=== PATIENT | female | born 1965 | race American Indian/Alaskan Native ===

== ENCOUNTER 2018-04-25 11:18 | Emergency (ER) | payer MEDICAID ==
[2018-04-25 11:28] VITALS: PULSE 88; RESP 18
[2018-04-25] MEDS ORDERED: Sodium Chloride 0.9% 500 ML IV ONE (12:16)
[2018-04-25] MEDS ORDERED: Sodium Chloride 0.9% 0 ML IV ONE (12:28)
[2018-04-25] MEDS ORDERED: Sodium Chloride 0.9% 1,000 ML ONE (12:28)
[2018-04-25 12:44] LABS: BASO # 0.1 K/uL (0.0-0.2); BASO % 1.4 % (0.0-2.0); EOS % 0.7 % (0.0-4.0); HEMOGLOBIN 13.3 g/dL (11.0-16.0); LYMPH # 3.1 K/uL (1.0-4.3); LYMPH % 46.2 % (20.0-40.0); MEAN CORPUSCULAR HEMOGLOBIN 27.7 pg (27.0-31.0); MEAN CORPUSCULAR HGB CONC 34.3 g/dL (33.0-37.0); MEAN PLATELET VOLUME 7.5 fL (7.2-11.7); MONO # 0.6 K/uL (0.0-0.8); MONO % 8.7 % (0.0-10.0); NEUT # 2.9 K/uL (1.8-7.0); NRBC % 0.1 % (0.0-2.0); RBC 4.79 Mil/uL (3.80-5.20); RED CELL DISTRIBUTION WIDTH 13.6 % (11.5-14.5); WHITE BLOOD COUNT 6.7 K/uL (4.8-10.8)
[2018-04-25 12:56] LABS: BLOOD UREA NITROGEN 12 mg/dL (7-17); CALCIUM 9.2 mg/dl (8.6-10.4); GFR NON-AFRICAN AMERICAN > 60; LIPASE 57 U/L (23-300)
[2018-04-25 12:57] LABS: ALB/GLOB RATIO 1.5 (1.0-2.1); ALBUMIN 4.8 g/dL (3.5-5.0); ALT/SGPT 11 U/L (9-52); AST/SGOT 41 U/L (14-36)
--- NOTE | 2018-04-25 13:00 | C.PDOC ---
History Of Present Illness 53 years old female presents to ED for complaint of epigastric abdominal pain associated with nausea and dizziness that began 1 month ago. Patient reports pain has worsened. Denies diarrhea or any other complaints. Time Seen by Provider: 04/25/18 11:46 Chief Complaint (Nursing): Abdominal Pain History Per: Patient History/Exam Limitations: no limitations Onset/Duration Of Symptoms: Hrs Current Symptoms Are (Timing): Still Present Location Of Pain/Discomfort: Epigastric Radiation Of Pain To:: None Associated Symptoms: Nausea. denies: Fever, Chills, Vomiting, Diarrhea, Urinary Symptoms Exacerbating Factors: None Alleviating Factors: None Last Bowel Movement: Today Recent travel outside of the [place]: No Abnormal Vaginal Bleeding: No Past Medical History Reviewed: Historical Data, Nursing Documentation, Vital Signs Vital Signs: Last Vital Signs Temp 98.3 F 04/25/18 11:27 Pulse 88 04/25/18 11:27 Resp 18 04/25/18 11:27 BP 147/90 04/25/18 11:27 Pulse Ox 98 04/25/18 11:27 - Medical History PMH: HTN Family History: States: No Known Family Hx - Social History Hx Alcohol Use: No Hx Substance Use: No - Immunization History Hx Tetanus Toxoid Vaccination: No Hx Influenza Vaccination: No Hx Pneumococcal Vaccination: No Review Of Systems Except As Marked, All Systems Reviewed And Found Negative. Constitutional: Negative for: Fever, Chills Gastrointestinal: Positive for: Nausea, Abdominal Pain (Epigastric ). Negative for: Vomiting, Diarrhea Skin: Negative for: Rash Neurological: Positive for: Dizziness. Negative for: Weakness, Numbness Physical Exam - Physical Exam Appears: Non-toxic, No Acute Distress Skin: Normal Color, Warm, Dry, No Rash Head: Atraumatic, Normacephalic Eye(s): bilateral: Normal Inspection, PERRL, EOMI Oral Mucosa: Moist Neck: Normal ROM, Supple Chest: Symmetrical, No Tenderness Cardiovascular: Rhythm Regular, No Murmur Respiratory: Normal Breath Sounds, No Rales, No Rhonchi, No Wheezing Gastrointestinal/Abdominal: Bowel Sounds (Active ), Soft, Tenderness (Diffuse epigastric ), No Distention, No Guarding, No Rebound Extremity: Normal ROM Extremity: Bilateral: Atraumatic, Normal Color And Temperature, Normal ROM Pulses: Left Radial: Normal, Right Radial: Normal Neurological/Psych: Oriented x3, Normal Speech, Normal Motor, Normal Sensation, Normal Reflexes, Other (No focal deficits ) Gait: Steady ED Course And Treatment - Laboratory Results Result Diagrams: 04/25/18 12:37 04/25/18 12:37 Lab Results: Total Bilirubin 0.8 mg/dL (0.2-1.3) 04/25/18 12:37 AST 41 U/L (14-36) H 04/25/18 12:37 ALT 11 U/L (9-52) 04/25/18 12:37 Alkaline Phosphatase 73 U/L (38-126) 04/25/18 12:37 Total Protein 8.0 g/dL (6.3-8.3) 04/25/18 12:37 Albumin 4.8 g/dL (3.5-5.0) 04/25/18 12:37 Globulin 3.2 gm/dL (2.2-3.9) 04/25/18 12:37 Albumin/Globulin Ratio 1.5 (1.0-2.1) 04/25/18 12:37 Lipase 57 U/L (23-300) 04/25/18 12:37 O2 Sat by Pulse Oximetry: 98 (RA) Pulse Ox Interpretation: Normal - CT Scan/US Abdomen US Other Rad Studies (CT/US): Read By Radiologist, Radiology Report Reviewed CT/US Interpretation: Date of service: 04/25/2018. HISTORY: abd pain. COMPARISON: None. TECHNIQUE: Sonographic evaluation of the right upper quadrant of the abdomen. FINDINGS: LIVER: Measures 14.9 cm in length. Normal echogenicity of the liver parenchyma. No mass. No intrahepatic bile duct dilatation. GALLBLADDER: Unremarkable. No gallstones. COMMON BILE DUCT: Measures 3.3 mm. No stones. No dilatation. PANCREAS: Unremarkable as visua lized. No mass. No ductal dilatation. RIGHT KIDNEY: Measures 11.0 cm in length. Normal echogenicity. No calculus, mass, or hydronephrosis. AORTA: No aneurysmal dilatation. IVC: Unremarkable. OTHER FINDINGS: None . IMPRESSION: Unremarkable limited abdomen ultrasound. Medical Decision Making Medical Decision Making: Plan: * IV Fluids * Toradol * Zofran * Pepcid * Blood work * EKG * Urine culture * Urinalysis * Abdomen US Progress: 14:21: Patient states abdominal pain resolved. Denies any complaints at this time. Patient is stable for discharge and will be discharged. Advised to follow up with abstract maker for possible endoscopy. Patient is in agreement. Patient will be discharged. Return if symptoms persist or worsen. Disposition Counseled Patient/Family Regarding: Studies Performed, Diagnosis, Need For Followup, Rx Given - Disposition Referrals: [facility] [Outside] Disposition: HOME/ ROUTINE Disposition Time: 14:21 Condition: STABLE Prescriptions: Dicyclomine [Dicyclomine HCl] 10 mg PO TID #14 cap Famotidine [Pepcid] 40 mg PO DAILY #14 tablet Ondansetron ODT [Zofran ODT] 4 mg PO TID PRN #14 odt PRN Reason: Nausea/Vomiting Instructions: Acute Abdomen (Belly Pain) Forms: [facility] ([place]) - POA Present On Arrival: None - Clinical Impression Clinical Impression: Abdominal pain - Scribe Statement The provider has reviewed the documentation as recorded by the Mehnazibalex Bazan All medical record entries made by the Mehnazibalex were at my direction and personally dictated by me. I have reviewed the chart and agree that the record accurately reflects my personal performance of the history, physical exam, medical decision making, and the department course for this patient. I have also personally directed, reviewed, and agree with the discharge instructions and disposition.
--- NOTE | 2018-04-25 13:52 | US ---
Date of service: 04/25/2018 HISTORY: abd pain COMPARISON: None. TECHNIQUE: Sonographic evaluation of the right upper quadrant of the abdomen. FINDINGS: LIVER: Measures 14.9 cm in length. Normal echogenicity of the liver parenchyma. No mass. No intrahepatic bile duct dilatation. GALLBLADDER: Unremarkable. No gallstones. COMMON BILE DUCT: Measures 3.3 mm. No stones. No dilatation. PANCREAS: Unremarkable as visualized. No mass. No ductal dilatation. RIGHT KIDNEY: Measures 11.0 cm in length. Normal echogenicity. No calculus, mass, or hydronephrosis. AORTA: No aneurysmal dilatation. IVC: Unremarkable. OTHER FINDINGS: None . IMPRESSION: Unremarkable limited abdomen ultrasound.
[2018-04-25 14:21] LABS: SQUAMOUS EPITHIAL 4 /hpf (0-5); URINE BACTERIA RARE (<OCC); URINE BILIRUBIN NEGATIVE (NEGATIVE); URINE BLOOD NEGATIVE (NEGATIVE); URINE CLARITY Clear (Clear); URINE COLOR Yellow (YELLOW); URINE GLUCOSE (UA) NORMAL (Normal); URINE LEUKOCYTE ESTERASE NEG Leu/uL (Negative); URINE PROTEIN NEGATIVE (NEGATIVE); URINE UROBILINOGEN NORMAL mg/dL (0.2-1.0)
[2018-04-25 15:05] VITALS: BP 142/64; TEMP 98.1; O2SAT 100
--- NOTE | 2018-04-27 09:57 | CARD ---
APPROVED REPORT Date of service: 04/25/2018 EKG Measurement Heart [id number] [id number] <Conclusion> Normal sinus rhythm Minimal voltage criteria for LVH, may be normal variant ST elevation, probably due to early repolarization Borderline ECG
== END 2018-04-25 15:04 | disposition home or self-care (01) ==
LOC: C.ER 11:18
DX: R10.13 Epigastric pain (principal)
CPT/HCPCS: 76705; 80053; 81001; 82948; 83690; 84484; 85025; 87086; 93005; 96374; 96375; 99284; J1885; J7040